=== PATIENT | female | born 1980 | race Caucasian/White ===

== ENCOUNTER 2024-11-18 12:07 | Emergency (ER) | payer OTHER ==
[~2024-11-18] VITALS: Ht 180.3 cm; Wt 100.2 kg
[2024-11-18 12:18] VITALS: TEMP 97.4
[2024-11-18] MEDS: MECLIZINE 25 MG TABLET PO ONE (12:53)
[2024-11-18] MEDS: ONDANSETRON 4MG 2ML VIAL IV ONE (12:53)
[2024-11-18] MEDS: NS (Normal Saline) 0.9% 1,000 ML IV ONE (12:54)
[2024-11-18 13:08] LABS: BASO # 0.1 10^3/uL (0.0-0.2); BASO % 1.3 % (0.0-1.0); EOS # 0.2 10^3/uL (0.0-0.5); EOS % 1.8 % (0.0-3.0); LYMPH # 2.4 10^3/uL (1.5-5.0); LYMPH % 24.0 % (24.0-44.0); MONO # 0.8 10^3/uL (0.0-0.8); MONO % 7.7 % (2.0-8.0); NEUTROPHILS # 6.5 10^3/uL (1.5-8.5); NEUTROPHILS % 64.4 % (36.0-66.0); PLATELET COUNT, AUTOMATED 340 10^3/uL (150-450)
[2024-11-18 13:35] LABS: CALCIUM LEVEL 8.1 MG/DL (8.5-10.1); CARBON DIOXIDE LEVEL 22 MMOL/L (20-31); CHLORIDE LEVEL 109 MMOL/L (98-107); CREATININE FOR GFR 0.65 MG/DL (0.55-1.30); GLOMERULAR FILTRATION RATE > 90.0 (>58); POTASSIUM SERUM 3.3 MMOL/L (3.5-5.1); SODIUM LEVEL 137 MMOL/L (136-145)
[2024-11-18] MEDS ORDERED: MECL50TA PO (15:48)
[2024-11-18] MEDS ORDERED: ONDA-282 PO (15:48)
[2024-11-18 16:00] VITALS: BP 125/79
[2024-11-18 16:01] VITALS: O2SAT 97
== END 2024-11-18 16:08 | disposition home or self-care (01) ==
LOC: EDBD 12:07 → M ED 14:02
DX: H81.13 Benign paroxysmal vertigo, bilateral (principal); Z79.83 Long term (current) use of bisphosphonates; Z79.899 Other long term (current) drug therapy
CPT/HCPCS: 70450; 80047; 80048; 85025; 96361; 96374; 96375; 99284; J2405; J2550